=== PATIENT | female | born 1960 | race Caucasian/White ===

== ENCOUNTER 2017-03-03 17:58 | Observation (INO) ==
--- NOTE | 2017-03-03 18:02 | Emergency Department Note ---
Disposition Clinical Impression: Abdominal pain, Diarrhea, Acute electrocardiogram changes, Supratherapeutic INR Disposition: Admitted As Inpatient Condition: Good General Adult HPI - General Chief complaint: ED Nausea/Vomiting/Diarrhea Stated complaint: N/V/D Time Seen by Provider: 03/03/17 18:01 - Related Data Home Medications Medication Instructions Recorded Confirmed Atenolol [Tenormin] 50 mg PO DAILY 12/26/14 03/03/17 Atorvastatin Calcium [Lipitor] 20 mg PO HS 12/26/14 03/03/17 Famotidine [Pepcid] 40 mg PO BID 12/26/14 03/03/17 Lisinopril [Zestril] 10 mg PO DAILY 12/26/14 03/03/17 Melatonin 10 mg PO HS 12/26/14 03/03/17 diazePAM [Valium] 10 mg PO TID 10/15/15 03/03/17 Methocarbamol [Robaxin] 500 mg PO Q8HR 12/04/15 03/03/17 Albuterol Neb [Proventil Neb] 2.5 mg IH Q6H PRN 03/03/17 03/03/17 Albuterol Sulfate [Proair Hfa] 2 puff IH Q4H PRN 03/03/17 03/03/17 Diphenoxylate/Atropine [Lomotil 1 each PO BID PRN 03/03/17 03/03/17 2.5 mg/0.025 mg] Trazodone HCl 300 mg PO HS 03/03/17 03/03/17 Warfarin [Coumadin] 5 mg PO 1700 03/03/17 03/03/17 Allergies Allergy/AdvReac Type Severity Reaction Status Date / Time doxycycline Allergy Rash Verified 01/11/17 14:07 Erythromycin Base Allergy See Verified 01/11/17 14:07 Comments Iodinated Contrast- Oral and Allergy Unresponsiv Verified 01/11/17 14:07 IV Dye e [Iodinated Contrast Media - IV Dye] ketorolac [From Toradol] Allergy Rash Verified 01/11/17 14:07 NSAIDS (Non-Steroidal Allergy Gastrointestinal Verified 01/11/17 14:07 Anti-Inflamma Upset Sulfa (Sulfonamide Allergy Rash Verified 01/11/17 14:07 Antibiotics) tramadol Allergy Rash Verified 01/11/17 14:07 Past Medical History - Past Medical History Medical history: Reports: asthma, COPD, DVT, diabetes, fibromyalgia, GERD, hyperlipidemia, migraine, pulmonary embolus Surgical history: Reports: hysterectomy Psychiatric history: Reports: anxiety, depression BOILER HELPER history: Reports: no BOILER HELPER history - Social History Smoking Status: Current every day smoker Smokeless Tobacco Status: No Alcohol use: Reports: none Drug use: Reports: none Course Vital Signs Temperature 97.8 F 03/03/17 18:44 Pulse Rate 54 03/03/17 18:44 Respiratory Rate 16 03/03/17 18:44 Blood Pressure 172/85 03/03/17 18:44 O2 Sat by Pulse Oximetry 97 03/03/17 18:44 Temperature 97.7 F 03/04/17 07:48 Pulse Rate 53 03/04/17 07:48 Respiratory Rate 16 03/04/17 07:48 Blood Pressure 103/69 03/04/17 07:48 O2 Sat by Pulse Oximetry 95 03/04/17 07:48 Oxygen Delivery Oxygen Delivery Room Air Medical Decision Making - Lab Data Result diagrams: 03/04/17 01:00 03/04/17 01:00 Lab Results 03/03/17 03/03/17 03/03/17 Range/Units 18:56 18:56 18:56 WBC 11.9 H (4.3-11.1) K/mcL RBC 4.42 (3.82-4.97) M/mcL Hgb 14.3 (11.5-15.4) g/dL Hct 41.6 (35.3-44.9) % MCV 94.1 (83.0-100.0) fL MCH 32.4 (28.0-33.3) pg MCHC 34.4 (31.6-35.5) g/dL RDW 13.7 (11.5-14.5) % Plt Count 291 (140-400) K/mcL MPV 9.9 (9.4-12.4) fL Immature Gran % 0.3 (0-4) % Seg Neutrophils % 72.2 % Lymphocytes % 20.5 % Monocytes % 6.4 % Eosinophils % 0.1 % Basophils % 0.5 % Neutrophils # 8.6 (1.6-8.9) K/mcL Lymphocytes # 2.4 (0.6-4.6) K/mcL Monocytes # 0.8 (0.0-1.3) K/mcL Eosinophils # 0.0 (0.0-0.6) K/mcL Basophils # 0.1 (0.0-0.2) K/mcL PT 46.4 H* (9.4-12.1) Seconds INR 4.2 Sodium 140 (136-145) mEq/L Potassium 4.1 (3.5-4.5) mEq/L Chloride 103 (98-109) mEq/L Carbon Dioxide 26 (19-29) mEq/L BUN 6 L (7-20) mg/dL Creatinine 0.89 (0.57-1.11) mg/dL Est GFR ( Amer) > 60 (> 60) Est GFR (Non-Af Amer) > 60 (> 60) BUN/Creatinine Ratio 7 (6-26) Glucose 134 H (70-99) mg/dL Calculated Osmolality 290 (280-300) Lactic Acid (0.5-2.2) mmol/L Calcium 9.4 (8.6-10.8) mg/dL Total Bilirubin 0.6 (0.2-1.2) mg/dL AST 31 (5-34) Units/L ALT 20 (0-55) Units/L Alkaline Phosphatase 79 (38-126) Units/L Troponin I (0-0.03) ng/mL Serum Total Protein 6.4 (6.0-8.3) g/dL Albumin 3.5 (3.5-5.0) g/dL Globulin 2.9 (2.4-3.5) g/dL Albumin/Globulin Ratio 1.2 (1.1-2.2) Urine Color (Yellow) Urine Clarity (Clear) Urine pH (5.0-8.0) pH Units Ur Specific [place] (1.010-1.025) Urine Protein (Neg-Trace) mg/dL Urine Glucose (UA) (Normal) mg/dL Urine Ketones (Negative) mg/dL Urine Blood (Negative) Urine Nitrite (Negative) Urine Bilirubin (Negative) Urine Urobilinogen (Normal) mg/dL Ur Leukocyte Esterase (Negative) 03/03/17 03/03/17 03/03/17 Range/Units 18:56 18:56 20:07 WBC (4.3-11.1) K/mcL RBC (3.82-4.97) M/mcL Hgb (11.5-15.4) g/dL Hct (35.3-44.9) % MCV (83.0-100.0) fL MCH (28.0-33.3) pg MCHC (31.6-35.5) g/dL RDW (11.5-14.5) % Plt Count (140-400) K/mcL MPV (9.4-12.4) fL Immature Gran % (0-4) % Seg Neutrophils % % Lymphocytes % % Monocytes % % Eosinophils % % Basophils % % Neutrophils # (1.6-8.9) K/mcL Lymphocytes # (0.6-4.6) K/mcL Monocytes # (0.0-1.3) K/mcL Eosinophils # (0.0-0.6) K/mcL Basophils # (0.0-0.2) K/mcL PT (9.4-12.1) Seconds INR Sodium (136-145) mEq/L Potassium (3.5-4.5) mEq/L Chloride (98-109) mEq/L Carbon Dioxide (19-29) mEq/L BUN (7-20) mg/dL Creatinine (0.57-1.11) mg/dL Est GFR ( Amer) (> 60) Est GFR (Non-Af Amer) (> 60) BUN/Creatinine Ratio (6-26) Glucose (70-99) mg/dL Calculated Osmolality (280-300) Lactic Acid 1.3 (0.5-2.2) mmol/L Calcium (8.6-10.8) mg/dL Total Bilirubin (0.2-1.2) mg/dL AST (5-34) Units/L ALT (0-55) Units/L Alkaline Phosphatase (38-126) Units/L Troponin I 0.00 (0-0.03) ng/mL Serum Total Protein (6.0-8.3) g/dL Albumin (3.5-5.0) g/dL Globulin (2.4-3.5) g/dL Albumin/Globulin Ratio (1.1-2.2) Urine Color Yellow (Yellow) Urine Clarity Clear (Clear) Urine pH 7.0 (5.0-8.0) pH Units Ur Specific [place] 1.010 (1.010-1.025) Urine Protein Negative (Neg-Trace) mg/dL Urine Glucose (UA) Normal (Normal) mg/dL Urine Ketones Negative (Negative) mg/dL Urine Blood Negative (Negative) Urine Nitrite Negative (Negative) Urine Bilirubin Negative (Negative) Urine Urobilinogen Normal (Normal) mg/dL Ur Leukocyte Esterase Negative (Negative) Attestation Statement - Attestation Attestation: I examined this patient and my medical decision-making was reviewed with the Resident Physician. I agree with the documented findings, disposition and treatment plan as described except to the extent set forth below. [id number] time provided Patient arrives by EMS from home complaining of nausea, vomiting, diarrhea. " My bowels exploded." She complains of generalized pain. Appears mildly uncomfortable on exam 18:21: Care to be endorsed to the oncoming physician Dr. Wu at 7 PM pending labs, CT, and reevaluation
[2017-03-03] MEDS ORDERED: *HR* Morphine 2 MG/ML SYRINGE IVP ONE (18:27)
--- NOTE | 2017-03-03 18:32 | Emergency Department Note ---
Disposition Clinical Impression: Abdominal pain Qualifiers: Abdominal location: lower abdomen, unspecified Qualified Code(s): R10.30 - Lower abdominal pain, unspecified Diarrhea Qualifiers: Diarrhea type: unspecified type Qualified Code(s): R19.7 - Diarrhea, unspecified Disposition: Still a Patient Condition: Good Referrals: Hunter Tapia PAC [Primary Care Provider] - Forms: ED Satisfaction Letter Time of Disposition: 19:00 Nausea/Vomiting/Diarrhea HPI - General Chief complaint: ED Nausea/Vomiting/Diarrhea Stated complaint: N/V/D Time Seen by Provider: 03/03/17 18:01 Source: patient Mode of arrival: ambulatory Limitations: no limitations Nursing Notes Reviewed: Yes Vital Signs Reviewed: Yes - History of Present Illness HPI Narrative: Patient is a 56-year-old female with past medical history of COPD, diabetes, DVTs, currently on Coumadin. She presents today due to abdominal pain, diarrhea. Patient said that she had a large bowel movement and describes as "excessive diarrhea "on Wednesday. Denies any bloody or dark stools. Since then, she has not had a bowel movement. She does have a history of bowel obstructions in the past. She said that she has also had decreased appetite. She also notes a fall about a week ago. She said that she was walking up the stairs and lost balance, fell onto wooden steps and either hit her abdomen on her arm or the stairs. She has also had abdominal discomfort since then as well. She says that she called her primary care physician and "was told to come to the ER for further evaluation due to concern for a possible bowel perforation." She says that she did not take her Coumadin tonight due to concern for possible bowel perforation. - Related Data Home Medications Medication Instructions Recorded Confirmed Atenolol [Tenormin] 50 mg PO DAILY 12/26/14 01/11/17 Atorvastatin Calcium [Lipitor] 20 mg PO DAILY 12/26/14 01/11/17 Famotidine [Pepcid] 40 mg PO BID 12/26/14 01/11/17 Lisinopril [Zestril] 10 mg PO DAILY 12/26/14 01/11/17 Melatonin 5 mg PO DAILY 12/26/14 01/11/17 Trazodone HCl [TraZODone] 300 mg PO DAILY 12/26/14 01/11/17 Warfarin [Coumadin] 4 mg PO PER PKG DI 02/15/15 01/11/17 diazePAM [Valium] 10 mg PO TID 10/15/15 01/11/17 Methocarbamol [Robaxin] 500 mg PO Q8HR 12/04/15 01/11/17 Warfarin [Coumadin] 3 mg PO PER PKG DI 12/04/15 01/11/17 Phenazopyridine [Pyridium] 100 mg PO BID 01/11/17 01/11/17 Previous Rx's Medication Instructions Recorded Acetaminophen w/Cod 300-30 mg 1 each PO Q6HR #8 tablet 01/11/17 [Tylenol w/Codeine #3] cephALEXin [Keflex] 500 mg PO QID #40 capsule 01/11/17 Allergies Allergy/AdvReac Type Severity Reaction Status Date / Time doxycycline Allergy Rash Verified 01/11/17 14:07 Erythromycin Base Allergy See Verified 01/11/17 14:07 Comments Iodinated Contrast- Oral and Allergy Unresponsiv Verified 01/11/17 14:07 IV Dye e [Iodinated Contrast Media - IV Dye] ketorolac [From Toradol] Allergy Rash Verified 01/11/17 14:07 NSAIDS (Non-Steroidal Allergy Gastrointestinal Verified 01/11/17 14:07 Anti-Inflamma Upset Sulfa (Sulfonamide Allergy Rash Verified 01/11/17 14:07 Antibiotics) tramadol Allergy Rash Verified 01/11/17 14:07 All systems ED: reviewed and negative except as stated. Constitutional: Denies: fever Cardiovascular: Denies: chest pain Respiratory: Denies: dyspnea Gastrointestinal: Reports: abdominal pain, diarrhea. Denies: nausea, vomiting, constipation Musculoskeletal: Denies: back pain Neurological: Denies: headache, weakness, numbness, paresthesias Past Medical History - Past Medical History Attestation: Yes The following information was validated with the patient. Source: patient Medical history: Reports: asthma, COPD, DVT, diabetes, fibromyalgia, GERD, hyperlipidemia, migraine, pulmonary embolus Surgical history: Reports: hysterectomy Psychiatric history: Reports: anxiety, depression CUT OUT MARKER history: Reports: no CUT OUT MARKER history - Social History Smoking Status: Current every day smoker Smokeless Tobacco Status: No Alcohol use: Reports: none Drug use: Reports: none Physical Exam - General Limitations: no limitations General appearance: alert, in no apparent distress - Head Head exam: atraumatic, normocephalic, normal inspection - Eye Eye exam: Present: normal appearance, PERRL, EOMI - ENT ENT exam: normal exam, normal oropharynx, mucous membranes moist - Neck Neck exam: Present: normal inspection, full ROM, trachea midline - Chest Chest inspection: Present: normal inspection, symmetric chest wall rise - Respiratory Respiratory exam: Present: normal lung sounds bilaterally - Cardiovascular Cardiovascular exam: Present: regular rate, normal rhythm, normal heart sounds - Abdominal Exam Abdominal exam: Present: soft, tenderness (suprapubic region and lower abdomen, moderate). Absent: distention, guarding, rebound - Extremities Exam Extremities exam: Present: normal inspection, full ROM. Absent: tenderness, pedal edema - Neurological Exam Neurological exam: Present: alert, oriented X3 - Psychiatric Psychiatric exam: Present: normal affect, normal mood, anxious - Skin Skin exam: Present: warm, dry, intact, normal color Course Course Narrative: Physical exam shows moderate lower and suprapubic abdominal pain on exam. We will obtain basic blood work, CBC, BMP, lipase. EKG was obtained and shows sinus bradycardia with elevated T waves. We will also obtain troponin level. No current chest pain or shortness of breath. Patient is on Coumadin but did not take her evening dose. We will also obtain CT of the abdomen and pelvis for further assessment of abdominal pain. Patient has a contrast allergy, therefore, I cannot do the scan with contrast. Will sign out the patient to Dr. Corcoran and Dr.Wilcox Hoffman for further care. Nausea/Vomiting/Diarrhea - [facility] Narrative Medical decision making narrative: Physical exam shows moderate lower and suprapubic abdominal pain on exam. We will obtain basic blood work, CBC, BMP, lipase. EKG was obtained and shows sinus bradycardia with elevated T waves. We will also obtain troponin level. No current chest pain or shortness of breath. Patient is on Coumadin but did not take her evening dose. We will also obtain CT of the abdomen and pelvis for further assessment of abdominal pain. Patient has a contrast allergy, therefore, I cannot do the scan with contrast. Will sign out the patient to Dr. Corcoran and Dr.Wilcox Hoffman for further care. - Medical Records Medical records reviewed: Yes I reviewed the patient's medical records. - EKG Data EKG attestation: Yes I reviewed and interpreted this EKG. EKG results narrative: 03/03/2017 at 18:29. Sinus bradycardia. Rate 55. AL 121. QRS 90. QTc 441. T-wave inversion in lead V2 through V6 that are new for the patient compared to previous EKG on 04/02/2010. No acute ST elevation. Some peaked T waves in lead 1 and aVL S.B.A.R. - S.B.A.R. Situation: Demographics, MOA Background: Presenting Complaint, Relevant PMH, Meds, & Allergies Assessment: Vital Signs, Course and respsone to treatment, Exam Concerns, Patient/Family Expectation, Pertinant Lab Results, Outstanding Labs Recommendation: Barrier(s) to disposition, Recommendation based on pending studies, treatments, or consults S.B.A.R. Report Given to: Dr. Corcoran and Dr. Torrie Hoffman S.B.A.ROscar Repor Time: 19:00
[2017-03-03 19:03] LABS: Basophils # 0.1 K/mcL (0.0-0.2); Basophils % 0.5 %; Eosinophils % 0.1 %; Hematocrit 41.6 % (35.3-44.9); Hemoglobin 14.3 g/dL (11.5-15.4); Immature Granulocytes % 0.3 % (0-4); Lymphocytes # 2.4 K/mcL (0.6-4.6); Lymphocytes % 20.5 %; Mean Corpuscular HGB Conc 34.4 g/dL (31.6-35.5); Mean Corpuscular Hemoglobin 32.4 pg (28.0-33.3); Mean Corpuscular Volume 94.1 fL (83.0-100.0); Mean Platelet Volume 9.9 fL (9.4-12.4); Monocytes # 0.8 K/mcL (0.0-1.3); Monocytes % 6.4 %; Neutrophils # 8.6 K/mcL (1.6-8.9); Platelet Count 291 K/mcL (140-400); Red Blood Count 4.42 M/mcL (3.82-4.97); Red Cell Distribution Width 13.7 % (11.5-14.5); Segmented Neutrophils % 72.2 %
[2017-03-03 19:15] LABS: INR 4.2
[2017-03-03 19:17] LABS: Alanine Aminotransferase 20 Units/L (0-55); Albumin 3.5 g/dL (3.5-5.0); Albumin/Globulin Ratio 1.2 (1.1-2.2); Alkaline Phosphatase 79 Units/L (38-126); Aspartate Amino Transferase 31 Units/L (5-34); BUN/Creatinine Ratio 7 (6-26); Bilirubin,Total 0.6 mg/dL (0.2-1.2); Blood Urea Nitrogen 6 mg/dL (7-20); Calcium 9.4 mg/dL (8.6-10.8); Carbon Dioxide 26 mEq/L (19-29); Chloride 103 mEq/L (98-109); Globulin 2.9 g/dL (2.4-3.5); Glucose 134 mg/dL (70-99); Osmolality,Calculated 290 (280-300); Potassium 4.1 mEq/L (3.5-4.5); Sodium 140 mEq/L (136-145); Total Protein 6.4 g/dL (6.0-8.3); eGFR For African Americans > 60 (> 60); eGFR For Non-African Americans > 60 (> 60)
[2017-03-03 19:21] LABS: Prothrombin Time 46.4 Seconds (9.4-12.1)
[2017-03-03] MEDS ORDERED: Aspirin 81 MG TAB.CHEW PO ONE (19:32)
[2017-03-03 20:16] LABS: Bilirubin,Urine Negative (Negative); Blood,Urine Negative (Negative); Clarity,Urine Clear (Clear); Color,Urine Yellow (Yellow); Glucose,Urine (UA) Normal (Normal); Ketones,Urine Negative (Negative); Leukocyte Esterase,Urine Negative (Negative); Nitrite,Urine Negative (Negative); Protein,Urine Negative (Neg-Trace); Urobilinogen,Urine Normal (Normal)
--- NOTE | 2017-03-03 20:56 | Emergency Department Note ---
Disposition Clinical Impression: Acute electrocardiogram changes, Supratherapeutic INR Abdominal pain Qualifiers: Abdominal location: lower abdomen, unspecified Qualified Code(s): R10.30 - Lower abdominal pain, unspecified Diarrhea Qualifiers: Diarrhea type: unspecified type Qualified Code(s): R19.7 - Diarrhea, unspecified Disposition: Admitted As Inpatient Condition: Good Referrals: Hunter Tapia, PAC [Primary Care Provider] - Forms: ED Satisfaction Letter Time of Disposition: 21:13 Abdominal Pain HPI - General Chief Complaint: ED Abdominal Pain Stated Complaint: N/V/D Time Seen by Provider: 03/03/17 18:01 Source: patient Mode of arrival: ambulatory Limitations: no limitations Nursing Notes Reviewed: Yes Vital Signs Reviewed: Yes - History of Present Illness Pain Scale: 10 - Related Data Home Medications Medication Instructions Recorded Confirmed Atenolol [Tenormin] 50 mg PO DAILY 12/26/14 03/03/17 Atorvastatin Calcium [Lipitor] 20 mg PO HS 12/26/14 03/03/17 Famotidine [Pepcid] 40 mg PO BID 12/26/14 03/03/17 Lisinopril [Zestril] 10 mg PO DAILY 12/26/14 03/03/17 Melatonin 10 mg PO HS 12/26/14 03/03/17 diazePAM [Valium] 10 mg PO TID 10/15/15 03/03/17 Methocarbamol [Robaxin] 500 mg PO Q8HR 12/04/15 03/03/17 Albuterol Neb [Proventil Neb] 2.5 mg IH Q6H PRN 03/03/17 03/03/17 Albuterol Sulfate [Proair Hfa] 2 puff IH Q4H PRN 03/03/17 03/03/17 Diphenoxylate/Atropine [Lomotil 1 each PO BID PRN 03/03/17 03/03/17 2.5 mg/0.025 mg] Trazodone HCl 300 mg PO HS 03/03/17 03/03/17 Warfarin [Coumadin] 5 mg PO 1700 03/03/17 03/03/17 Allergies Allergy/AdvReac Type Severity Reaction Status Date / Time doxycycline Allergy Rash Verified 01/11/17 14:07 Erythromycin Base Allergy See Verified 01/11/17 14:07 Comments Iodinated Contrast- Oral and Allergy Unresponsiv Verified 01/11/17 14:07 IV Dye e [Iodinated Contrast Media - IV Dye] ketorolac [From Toradol] Allergy Rash Verified 01/11/17 14:07 NSAIDS (Non-Steroidal Allergy Gastrointestinal Verified 01/11/17 14:07 Anti-Inflamma Upset Sulfa (Sulfonamide Allergy Rash Verified 01/11/17 14:07 Antibiotics) tramadol Allergy Rash Verified 01/11/17 14:07 Constitutional: Denies: fever Cardiovascular: Denies: chest pain Respiratory: Denies: dyspnea Gastrointestinal: Reports: abdominal pain, diarrhea. Denies: nausea, vomiting, constipation Musculoskeletal: Denies: back pain Neurological: Denies: headache, weakness, numbness, paresthesias Abdominal Pain PMH - Past Medical History Medical history: Reports: asthma, COPD, DVT, diabetes, fibromyalgia, GERD, hyperlipidemia, migraine, pulmonary embolus Female Surgical History: Reports: hysterectomy LINOLEUM TILE FLOOR LAYER history: Reports: no LINOLEUM TILE FLOOR LAYER history Psychiatric history: Reports: anxiety, depression - Social History Smoking status: Current every day smoker Alcohol use: Reports: none Drug use: Reports: none Physical Exam - General Limitations: no limitations General appearance: alert, in no apparent distress Course - Reevaluation(s) Reevaluation #1: Signout from the daytime team. 56-year-old female presenting with nausea, vomiting, diarrhea. Troponin is normal. However, she does have a new T-wave inversions on her EKG. Could be an anginal equivalent and will admit to the hospitalist service for further cardiac workup. Time: 20:54 Vital Signs Temperature 97.8 F 03/03/17 18:44 Pulse Rate 54 03/03/17 18:44 Respiratory Rate 16 03/03/17 18:44 Blood Pressure 172/85 03/03/17 18:44 O2 Sat by Pulse Oximetry 97 03/03/17 18:44 Temperature 97.8 F 03/03/17 18:44 Pulse Rate 61 03/03/17 19:59 Respiratory Rate 18 03/03/17 19:59 Blood Pressure 189/101 03/03/17 19:59 O2 Sat by Pulse Oximetry 97 03/03/17 19:59 Oxygen Delivery Oxygen Delivery Room Air Abdominal Pain - Medical Records Medical records reviewed: Yes I reviewed the patient's medical records. - Lab Data Lab results reviewed: Yes I reviewed the patient's lab results. Result diagrams: 03/03/17 18:56 03/03/17 18:56 Lab Results 03/03/17 03/03/17 03/03/17 Range/Units 18:56 18:56 18:56 WBC 11.9 H (4.3-11.1) K/mcL RBC 4.42 (3.82-4.97) M/mcL Hgb 14.3 (11.5-15.4) g/dL Hct 41.6 (35.3-44.9) % MCV 94.1 (83.0-100.0) fL MCH 32.4 (28.0-33.3) pg MCHC 34.4 (31.6-35.5) g/dL RDW 13.7 (11.5-14.5) % Plt Count 291 (140-400) K/mcL MPV 9.9 (9.4-12.4) fL Immature Gran % 0.3 (0-4) % Seg Neutrophils % 72.2 % Lymphocytes % 20.5 % Monocytes % 6.4 % Eosinophils % 0.1 % Basophils % 0.5 % Neutrophils # 8.6 (1.6-8.9) K/mcL Lymphocytes # 2.4 (0.6-4.6) K/mcL Monocytes # 0.8 (0.0-1.3) K/mcL Eosinophils # 0.0 (0.0-0.6) K/mcL Basophils # 0.1 (0.0-0.2) K/mcL PT 46.4 H* (9.4-12.1) Seconds INR 4.2 Sodium 140 (136-145) mEq/L Potassium 4.1 (3.5-4.5) mEq/L Chloride 103 (98-109) mEq/L Carbon Dioxide 26 (19-29) mEq/L BUN 6 L (7-20) mg/dL Creatinine 0.89 (0.57-1.11) mg/dL Est GFR ( Amer) > 60 (> 60) Est GFR (Non-Af Amer) > 60 (> 60) BUN/Creatinine Ratio 7 (6-26) Glucose 134 H (70-99) mg/dL Calculated Osmolality 290 (280-300) Lactic Acid (0.5-2.2) mmol/L Calcium 9.4 (8.6-10.8) mg/dL Total Bilirubin 0.6 (0.2-1.2) mg/dL AST 31 (5-34) Units/L ALT 20 (0-55) Units/L Alkaline Phosphatase 79 (38-126) Units/L Troponin I (0-0.03) ng/mL Serum Total Protein 6.4 (6.0-8.3) g/dL Albumin 3.5 (3.5-5.0) g/dL Globulin 2.9 (2.4-3.5) g/dL Albumin/Globulin Ratio 1.2 (1.1-2.2) Urine Color (Yellow) Urine Clarity (Clear) Urine pH (5.0-8.0) pH Units Ur Specific [place] (1.010-1.025) Urine Protein (Neg-Trace) mg/dL Urine Glucose (UA) (Normal) mg/dL Urine Ketones (Negative) mg/dL Urine Blood (Negative) Urine Nitrite (Negative) Urine Bilirubin (Negative) Urine Urobilinogen (Normal) mg/dL Ur Leukocyte Esterase (Negative) 03/03/17 03/03/17 03/03/17 Range/Units 18:56 18:56 20:07 WBC (4.3-11.1) K/mcL RBC (3.82-4.97) M/mcL Hgb (11.5-15.4) g/dL Hct (35.3-44.9) % MCV (83.0-100.0) fL MCH (28.0-33.3) pg MCHC (31.6-35.5) g/dL RDW (11.5-14.5) % Plt Count (140-400) K/mcL MPV (9.4-12.4) fL Immature Gran % (0-4) % Seg Neutrophils % % Lymphocytes % % Monocytes % % Eosinophils % % Basophils % % Neutrophils # (1.6-8.9) K/mcL Lymphocytes # (0.6-4.6) K/mcL Monocytes # (0.0-1.3) K/mcL Eosinophils # (0.0-0.6) K/mcL Basophils # (0.0-0.2) K/mcL PT (9.4-12.1) Seconds INR Sodium (136-145) mEq/L Potassium (3.5-4.5) mEq/L Chloride (98-109) mEq/L Carbon Dioxide (19-29) mEq/L BUN (7-20) mg/dL Creatinine (0.57-1.11) mg/dL Est GFR ( Amer) (> 60) Est GFR (Non-Af Amer) (> 60) BUN/Creatinine Ratio (6-26) Glucose (70-99) mg/dL Calculated Osmolality (280-300) Lactic Acid 1.3 (0.5-2.2) mmol/L Calcium (8.6-10.8) mg/dL Total Bilirubin (0.2-1.2) mg/dL AST (5-34) Units/L ALT (0-55) Units/L Alkaline Phosphatase (38-126) Units/L Troponin I 0.00 (0-0.03) ng/mL Serum Total Protein (6.0-8.3) g/dL Albumin (3.5-5.0) g/dL Globulin (2.4-3.5) g/dL Albumin/Globulin Ratio (1.1-2.2) Urine Color Yellow (Yellow) Urine Clarity Clear (Clear) Urine pH 7.0 (5.0-8.0) pH Units Ur Specific [place] 1.010 (1.010-1.025) Urine Protein Negative (Neg-Trace) mg/dL Urine Glucose (UA) Normal (Normal) mg/dL Urine Ketones Negative (Negative) mg/dL Urine Blood Negative (Negative) Urine Nitrite Negative (Negative) Urine Bilirubin Negative (Negative) Urine Urobilinogen Normal (Normal) mg/dL Ur Leukocyte Esterase Negative (Negative) - Radiology Data Radiology results reviewed: Yes I reviewed the patient's radiology results. Abdomen/Pelvis CT 03/03/17 18:26 IMPRESSION: 1. Limited study due to lack of IV contrast. 2. Otherwise no acute findings within the abdomen or pelvis. 3. The appendix is not visualized. However there are no significant inflammatory changes of the right lower quadrant to suggest acute appendicitis. 4. No evidence of small bowel obstruction. D/ / 03/03/2017 20:02:03 Galileo Muñoz MD / [email or web address] Interpreting Provider: Galileo Muñoz MD Chest X-Ray 03/03/17 19:33 IMPRESSION: No acute cardiopulmonary findings. D/ / 03/03/2017 20:09:40 Galileo Muñoz MD / karthik Interpreting Provider: Galileo Muñoz MD - EKG Data EKG attestation: Yes I reviewed and interpreted this EKG. EKG results narrative: Sinus bradycardia, rate 55, NV interval 121, QRS 90, QTC 441, indeterminate axis , inverted T waves in V1, V2 and V3 that are changed from previous. Also has T- wave inversions in V4 and V5 that are new. S.B.AStanislav - Peace.[place] Situation: Demographics, MOA Background: Presenting Complaint, Relevant PMH, Meds, & Allergies Assessment: Vital Signs, Course and respsone to treatment, Exam Concerns, Patient/Family Expectation, Pertinant Lab Results, Outstanding Labs Recommendation: Barrier(s) to disposition, Recommendation based on pending studies, treatments, or consults S.BBill Report Given to: Dr. Onofre Pittman Repor Time: 21:13 Attestation Statement - Attestation Attestation: I examined this patient and my medical decision-making was reviewed with the Resident Physician, Dr. Corcoran. I agree with the documented findings, disposition and treatment plan as described except to the extent set forth below. Patient is 48-year-old white female who presented initially to the emergency Department during the day shift and was initially evaluated by Dr. Powell for reported generalized abdominal pain nausea vomiting and diarrhea. Patient had labs ordered, EKG and cardiac workup ordered and CT pending at the time of sign out. Patient is remained hemodynamically stable and resting comfortably throughout her ED course. I agree with patient's physical exam findings as documented. Patient's lab evaluation is unremarkable overall and her CT abdomen and pelvis was negative for any abnormalities. Patient's troponin was negative but she does have new T-wave inversions across the anterolateral leads in comparison to prior EKG. Concerned with patient who is a diabetic having nausea and abdominal symptoms with new EKG changes and feel she warrants further cardiac evaluation. Case was discussed with the hospitalist who accepted patient for admission.
--- NOTE | 2017-03-03 22:46 | Internal Med History&Physical ---
<RjNéstor - Last Filed: 03/03/17 23:17> Date of Encounter: 03/03/17 Time of Encounter: 22:43 Assessment and Plan (1) Abdominal pain Current visit: Yes Status: Acute Unclear etiology, cannot rule out viral gastroenteritis as she only had one episode of diarrhea and has been constipated since then CT of the abdomen and pelvis did not reveal any acute abnormalities and lab work is negative We will provide her with stool softeners as needed and support with analgesics and anti-emetics Given that this could be an anginal equivalent in setting of new T-wave inversion seen on EKG, we will rule out cardiac etiology with trop and echo Qualifiers: Abdominal location: lower abdomen, unspecified Qualified Code(s): R10.30 - Lower abdominal pain, unspecified (2) Syncope Current visit: Yes Status: Acute Although this is not why she presented today, she does have T-wave inversions on EKG and describes syncopal episodes associated with falls I will obtain an echocardiogram and bilateral carotid duplex in the a.m. She is already on statin, beta nohemi which we will continue; obtain lipid panel to see if she needs increased dose of statin Qualifiers: Qualified Code(s): R55 - Syncope and collapse (3) Supratherapeutic INR Current visit: Yes Status: Acute Patient's INR is 4.2 today We will hold her Coumadin and reassess her INR in the morning prior to restarting (4) Anxiety Current visit: Yes Status: Chronic We will continue her home Valium as she is quite anxious upon presentation (5) HTN (hypertension) Current visit: No Status: Chronic Her blood pressures were moderately elevated upon admission We will resume her home atenolol and lisinopril and offer hydralazine IV as needed Qualifiers: Qualified Code(s): I10 - Essential (primary) hypertension (6) COPD (chronic obstructive pulmonary disease) Current visit: No Status: Chronic Not currently in exacerbation We will restart her on her home breathing treatments as needed She is saturating in the mid to upper 90s on room air currently Qualifiers: COPD type: unspecified COPD Qualified Code(s): J44.9 - Chronic obstructive pulmonary disease, unspecified (7) DM (diabetes mellitus), type 2 Current visit: No Status: Chronic Unclear if she actually has diabetes, but states that it has affected her vision in the past Her last A1c was obtained over a year ago and was 5.6, we will recheck We will start her on low-dose sliding scale insulin ACHS accuchecks Qualifiers: Diabetes mellitus complication status: with skin complications Diabetes mellitus complication detail: with other skin complication Diabetes mellitus intermediate project manager insulin use: without halfway use Qualified Code(s): E11.628 - Type 2 diabetes mellitus with other skin complications (8) History of DVT (deep vein thrombosis) Current visit: No Status: Chronic Currently on Coumadin which is supratherapeutic (9) DVT prophylaxis Current visit: No Status: Acute She is supratherapeutic on INR, we will hold Coumadin as above Internal Medicine - H&P: HPI Chief complaint: abdominal pain Admitted From: Home Plans for Post Hospital Care: Home History of present illness: Ms. Lloyd is a 56 year old female who presents to the ED with abdominal pain. She states the pain started when she had an episode of "explosive diarrhea" on Wednesday. Patient stated that she had suprapubic pain and will try to bathroom but cannot hold it in, and had watery diarrhea that went up her shirt and on to her hair and stained the dubose as well. She described it as birdie colored and nonbloody, and this has never happened in the past. She has not had a bowel movement since Wednesday has also had decreased oral intake since then due to nausea. Patient also reports chest pain but has also been belching and has a history of GERD. She is currently on lifelong Coumadin due to history of DVT and PE and states that she did not take today's dose due to fear of bowel perforation. In addition, patient reports having syncope and frequent falls at home and does not know why. She denies any dizziness, lightheadedness, fevers, chills, shortness of breath, urinary problems. Patient claims she cannot get a colonoscopy because she cannot be off Coumadin for more than 2 days at a time as her blood "thickens quickly". Past Med Surg Social Fam HX - Past Medical History Medical history: asthma, COPD, DVT, diabetes, fibromyalgia, GERD, hyperlipidemia , migraine, pulmonary embolus Psychiatric history: anxiety, depression - Past Surgical History Surgical History: hysterectomy - Social History Smoking Status: Current every day smoker Smokeless Tobacco Status: No Alcohol use: none Drug use: none - Family History Mother Hx Family Cancer: Yes (LUNG WITH METS) Internal Medicine - H&P: Meds Atenolol [Tenormin] 50 mg PO DAILY 12/26/14 [History] Atorvastatin Calcium [Lipitor] 20 mg PO HS 12/26/14 [History] Famotidine [Pepcid] 40 mg PO BID 12/26/14 [History] Lisinopril [Zestril] 10 mg PO DAILY 12/26/14 [History] Melatonin 10 mg PO HS 12/26/14 [History] diazePAM [Valium] 10 mg PO TID 10/15/15 [History] Methocarbamol [Robaxin] 500 mg PO Q8HR 12/04/15 [History] Albuterol Neb [Proventil Neb] 2.5 mg IH Q6H PRN 03/03/17 [History] Albuterol Sulfate [Proair Hfa] 2 puff IH Q4H PRN 03/03/17 [History] Diphenoxylate/Atropine [Lomotil 2.5 mg/0.025 mg] 1 each PO BID PRN 03/03/17 [ History] Trazodone HCl 300 mg PO HS 03/03/17 [History] Warfarin [Coumadin] 5 mg PO 1700 03/03/17 [History] 3 Allergy/AdvReac Type Severity Reaction Status Date / Time doxycycline Allergy Rash Verified 01/11/17 14:07 Erythromycin Base Allergy See Verified 01/11/17 14:07 Comments Iodinated Contrast- Oral and Allergy Unresponsiv Verified 01/11/17 14:07 IV Dye e [Iodinated Contrast Media - IV Dye] ketorolac [From Toradol] Allergy Rash Verified 01/11/17 14:07 NSAIDS (Non-Steroidal Allergy Gastrointestinal Verified 01/11/17 14:07 Anti-Inflamma Upset Sulfa (Sulfonamide Allergy Rash Verified 01/11/17 14:07 Antibiotics) tramadol Allergy Rash Verified 01/11/17 14:07 All Systems PM: A 10-system review of systems was performed and is negative for pertinent findings except as documented above in the HPI. - Constitutional Constitutional: falls, no chills, no fever(s), no night sweats - EENT Eyes: blurry vision, no change in vision, no discharge, no pain, no photophobia Ears: no ear discharge, no ear pain, no tinnitus Nose, mouth and throat: neck pain, no dysphagia, no nasal discharge, no sore throat - Cardiovascular Cardiovascular ROS IM: chest pain, irregular heart rhythm, syncope, no diaphoresis, no dyspnea, no lightheadedness, no palpitations - Respiratory Respiratory: no cough, no dyspnea, no wheezing, no excessive phlegm production - Gastrointestinal Gastrointestinal: abdominal pain, diarrhea, no hematemesis, no hematochezia, no melena, no nausea, no vomiting - Genitourinary Genitourinary: no change in urinary stream, no dysuria, no flank pain, no hematuria - Musculoskeletal Musculoskeletal ROS IM: no numbness, no tingling - Integumentary Integumentary IM: no rash, no unusual bruising - Neurological Neurological ROS: no confusion, no convulsions, no focal weakness, no numbness, no tingling, no tremor(s) - Hematologic/Lymphatic Hematologic/Lymphatic: no easy bruising - Constitutional Vitals: Temp Pulse Resp BP Pulse Ox 97.8 F 61 16 187/94 97 03/03/17 18:44 03/03/17 19:59 03/03/17 21:54 03/03/17 21:54 03/03/17 19:59 General appearance: Present: cooperative, pleasant, no acute distress, obese, answers questions appropriately - Head Head exam: Present: atraumatic, normocephalic - Eye Eye exam: Present: PERRL, conjuntiva pink, sclera anicteric - Neck Neck exam general surgery: Present: supple, trachea midline. Absent: lymphadenopathy - Respiratory Respiratory exam: Present: CTAB. Absent: accessory muscle use, rales, rhonchi, wheezes - Cardiovascular Cardiovascular exam: Present: RRR, +S1, +S2. Absent: diastolic murmur, gallop, rubs, systolic murmur - GI/Abdominal GI/Abdominal exam: Present: normal bowel sounds, soft, no peritoneal signs. Absent: distended, tenderness - Extremities Exam Extremities exam: Present: warm, radial pulses palpable and symmetrical. Absent : calf tenderness, cyanotic, pedal edema - Neurological Exam Neurological exam: Present: alert, oriented X3, no focal deficits. Absent: facial droop, speech deficit - Skin Skin exam: Present: dry, intact Internal Med - H&P Results - Labs CBC & Chem 7: 03/03/17 18:56 03/03/17 18:56 <RjJj - Last Filed: 03/04/17 04:09> Date of Encounter: 03/04/17 Internal Medicine - H&P: HPI History of present illness: Ms. Lloyd is a 56 year old female All Systems PM: A 10-system review of systems was performed and is negative for pertinent findings except as documented above in the HPI. - Constitutional Vitals: Temp Pulse Resp BP Pulse Ox 97.5 F L 50 18 135/84 96 03/04/17 03:08 03/04/17 03:08 03/04/17 03:08 03/04/17 03:08 03/04/17 03:08 Internal Med - H&P Results - Labs CBC & Chem 7: 03/04/17 01:00 03/04/17 01:00 Labs: Short CBC 03/04/17 Range/Units 01:00 WBC 9.7 (4.3-11.1) K/mcL Hgb 13.9 (11.5-15.4) g/dL Hct 40.2 (35.3-44.9) % Plt Count 295 (140-400) K/mcL Neutrophils # 5.3 (1.6-8.9) K/mcL BMP 03/04/17 01:00 Sodium 139 Potassium 3.3 L Chloride 101 Carbon Dioxide 28 BUN 6 L Creatinine 0.86 Glucose 137 H Calcium 8.8 Cardiac Enzymes 03/04/17 Range/Units 01:00 Troponin I 0.00 (0-0.03) ng/mL - Attending Attestation I have seen and examined the patient independently. I have discussed with resident Dr De La Rosa regarding the management plan. Agree with the documentation. Patient has a multiple complaints. Intermittent chest pain with T-wave change on EKG. Syncope with frequent fall. Abdominal pain, nausea, vomiting, and diarrhea. First of all, need to rule out ACS. We will place patient on continuous cardiac monitoring, 3 sets of troponin, repeat EKG in a.m., echocardiogram. We will also order duplex carotid to rule out. Will place patient on clear liquid diet and symptomatic treatment for nausea and vomiting.
[2017-03-03] MEDS ORDERED: Naloxone 0.4 MG/ML INJ IVP PRN (22:50)
[2017-03-03] MEDS ORDERED: Acetaminophen 325 MG TABLET PO PRN (22:50)
[2017-03-03] MEDS ORDERED: D5% in Water 1,000 ML IVC PRN (22:50)
[2017-03-03] MEDS ORDERED: *HR* Dextrose 50 % in Water (Syg) 50 ML SYRINGE IVP PRN (22:50)
[2017-03-03] MEDS ORDERED: Dextrose Gel 15 GM PO PRN ×2 (22:50)
[2017-03-03] MEDS ORDERED: Albuterol 2.5 MG/3 ML NEBULIZER IH PRN (22:56)
[2017-03-03] MEDS ORDERED: Melatonin 3 MG TABLET PO PRN (22:56)
[2017-03-04] MEDS: traZODone 50 MG TABLET PO SCH ×2 (00:30→21:23)
[2017-03-04] MEDS: diazePAM 10 MG TABLET PO PRN ×2 (00:31→11:13)
[2017-03-04] MEDS: Ondansetron 4 MG/2 ML VIAL IVP PRN ×2 (00:31→17:56)
[2017-03-04 01:13] LABS: Basophils % 0.4 %; Eosinophils # 0.1 K/mcL (0.0-0.6); Eosinophils % 0.6 %; Hematocrit 40.2 % (35.3-44.9); Hemoglobin 13.9 g/dL (11.5-15.4); Immature Granulocytes % 0.2 % (0-4); Lymphocytes # 3.4 K/mcL (0.6-4.6); Lymphocytes % 34.9 %; Mean Corpuscular HGB Conc 34.6 g/dL (31.6-35.5); Mean Corpuscular Hemoglobin 32.7 pg (28.0-33.3); Mean Corpuscular Volume 94.6 fL (83.0-100.0); Mean Platelet Volume 10.1 fL (9.4-12.4); Monocytes # 0.9 K/mcL (0.0-1.3); Monocytes % 8.9 %; Neutrophils # 5.3 K/mcL (1.6-8.9); Platelet Count 295 K/mcL (140-400); Red Blood Count 4.25 M/mcL (3.82-4.97); Red Cell Distribution Width 13.9 % (11.5-14.5)
[2017-03-04 01:18] LABS: INR 3.9
[2017-03-04 01:28] LABS: BUN/Creatinine Ratio 7 (6-26); Blood Urea Nitrogen 6 mg/dL (7-20); Calcium 8.8 mg/dL (8.6-10.8); Carbon Dioxide 28 mEq/L (19-29); Chloride 101 mEq/L (98-109); Glucose 137 mg/dL (70-99); Osmolality,Calculated 288 (280-300); Potassium 3.3 mEq/L (3.5-4.5); Sodium 139 mEq/L (136-145); eGFR For African Americans > 60 (> 60); eGFR For Non-African Americans > 60 (> 60)
[2017-03-04 01:29] LABS: Hemoglobin A1C 5.9 %
[2017-03-04 01:30] LABS: Chol/HDL Ratio 4.5 (0-4.9)
[2017-03-04 01:40] LABS: Prothrombin Time 43.8 Seconds (9.4-12.1)
[2017-03-04] MEDS: *HR* Morphine 2 MG/ML SYRINGE IVP PRN ×3 (02:33→21:23)
[2017-03-04] MEDS: *HR* Heparin 5,000 UNIT/ML VIAL SQ SCH ×2 (05:29→17:56)
[2017-03-04] MEDS: Pantoprazole 40 MG VIAL IVP SCH (05:29)
[2017-03-04] MEDS: Insulin LISPRO 300 UNITS/3 ML VIAL SQ SCH ×3 (10:59→17:39)
--- NOTE | 2017-03-04 15:35 | Electrocardiograph Report ---
[address] [address] Test Date: 2017-03-03 Pat Name: Leigh Lloyd Department: 103 Room: 3B Gender: F Chemist Internship: EKP : 1960 Requested By: Virgil Powell Order Number: [id number] Reading MD: Evaristo Up Measurements Intervals [place] Rate: 55 P: 19 IN: 121 QRS: -2 QRSD: 90 T: 35 QT: 452 QTc: 441 Interpretive Statements SINUS BRADYCARDIA VOLTAGE CRITERIA FOR LVH MODERATE T-WAVE ABNORMALITY, CONSIDER ANTEROLATERAL ISCHEMIA Electronically Signed On 03-04-2017 15:33:23 EDT by Evaristo Up
--- NOTE | 2017-03-04 17:56 | Internal Med Progress Note ---
Date of Encounter: 03/04/17 Time of Encounter: 17:42 - Assessment and plan (1) Abdominal pain Current Visit: Yes Status: Acute Assessment and plan: Leigh Lloyd is a 56 y/o female with PMH HTN, diabetes, history DVT and COPD who presented to [facility] on 03/03/2017 with complaints of abdominal pain. She was placed in observation status for further workup and treatment. 1. Abdominal pain: For 1 week prior to presentation. ABD CT nonacute however was done without IV contrast. The appendix was not seen but there was no inflammatory changes in RLQ suggest acute appendicitis. Abdominal pain improved on today's exam. Etiology unknown. Possible gastroenteritis as she does report one episode of loose, watery stool. Continue clear liquid diets. Stool studies. Consider repeating abdominal CT with contrast if symptoms persist 2. DVT: per hx. on Coumadin at home. INR 3.9. Hold until INR less than 3. 3. Syncope: per patient report prior to presentation. Now resolved. Echo with EF 60%, mild diastolic dysfunction. Carotid Dopplers normal. Check Ortho BPs 4. Diabetes: per hx. Blood sugars controlled. SSI. Monitor blood sugar and titrate PRN 5. HTN: per hx. BP controlled. Cont home BP medications. Monitor BP and titrate PRN 6. DVT prophylaxis: Supratherapeutic INR Qualifiers: Abdominal location: lower abdomen, unspecified Qualified Code(s): R10.30 - Lower abdominal pain, unspecified (2) COPD (chronic obstructive pulmonary disease) Current Visit: No Status: Chronic Qualifiers: COPD type: unspecified COPD Qualified Code(s): J44.9 - Chronic obstructive pulmonary disease, unspecified (3) DM (diabetes mellitus), type 2 Current Visit: No Status: Chronic Qualifiers: Diabetes mellitus complication status: with skin complications Diabetes mellitus complication detail: with other skin complication Diabetes mellitus group home insulin use: without intermediate card tender use Qualified Code(s): E11.628 - Type 2 diabetes mellitus with other skin complications (4) History of DVT (deep vein thrombosis) Current Visit: No Status: Chronic (5) HTN (hypertension) Current Visit: No Status: Chronic Qualifiers: Qualified Code(s): I10 - Essential (primary) hypertension - Subjective Interval history: Seen and examined at bedside, patient is new to me. Information obtained from chart review and patient report. Patient says she overall feels better. Still with some abdominal tenderness but significantly improved. She reports one episode of loose, watery stool prior to presentation. Tolerating clear liquid diet. - Constitutional Vitals: Temp Pulse Resp BP Pulse Ox 98.4 F 55 16 126/77 96 03/04/17 15:18 03/04/17 15:18 03/04/17 15:18 03/04/17 15:18 03/04/17 15:18 General appearance: Present: cooperative, pleasant, no acute distress, obese, answers questions appropriately - Head Head exam: Present: atraumatic, normocephalic - Eye Eye exam: Present: PERRL, conjuntiva pink, sclera anicteric Pupils: Present: PERRL - Neck Neck exam general surgery: Present: supple, trachea midline. Absent: lymphadenopathy - Respiratory Respiratory exam: Present: CTAB. Absent: accessory muscle use, rales, rhonchi, wheezes - Cardiovascular Cardiovascular exam: Present: RRR, +S1, +S2. Absent: diastolic murmur, gallop, rubs, systolic murmur - GI/Abdominal GI/Abdominal exam: Present: normal bowel sounds, soft, no peritoneal signs. Absent: distended, tenderness - Extremities Exam Extremities exam: Present: warm, radial pulses palpable and symmetrical. Absent : calf tenderness, cyanotic, pedal edema - Neurological Exam Neurological exam: Present: CN II-XII intact, oriented X3, no focal deficits. Absent: pronater drift, facial droop, speech deficit - Skin Skin exam: Present: dry, intact Internal Medicine: Result - Labs CBC & Chem 7: 03/04/17 01:00 03/04/17 01:00 Labs: Short CBC 03/04/17 Range/Units 01:00 WBC 9.7 (4.3-11.1) K/mcL Hgb 13.9 (11.5-15.4) g/dL Hct 40.2 (35.3-44.9) % Plt Count 295 (140-400) K/mcL Neutrophils # 5.3 (1.6-8.9) K/mcL BMP 03/04/17 01:00 Sodium 139 Potassium 3.3 L Chloride 101 Carbon Dioxide 28 BUN 6 L Creatinine 0.86 Glucose 137 H Calcium 8.8 Cardiac Enzymes 03/04/17 03/04/17 Range/Units 01:00 06:49 Troponin I 0.00 0.01 (0-0.03) ng/mL - ABG Interpretation ABG results: PT/INR, D-dimer PT 43.8 Seconds (9.4-12.1) H* 03/04/17 01:00 - Impressions Impressions Echocardiogram 03/04/17 22:50 Impressions: LVEF 60-65%. Normal LV chamber size and function. Mild concentric left ventricular hypertrophy. Mild left ventricular diastolic dysfunction. Normal right ventricular structure and function. Mild aortic regurgitation. Mild pulmonary hypertension. Left Ventricular Wall Motion: Rest Echo Findings All wall segments showed normal motion. Findings: Study Quality * Technically adequate exam. ECG Findings * Normal sinus rhythm. Left Ventricle * LVEF 60-65%. * Normal LV chamber size and function. * Mild concentric left ventricular hypertrophy. * Mild left ventricular diastolic dysfunction. Right Ventricle * Normal right ventricular structure and function. Left Atrium * Mildly dilated left atrium. Right Atrium * Normal right atrial size. Aortic Valve * Trileaflet aortic valve. * Mild aortic regurgitation. * No aortic stenosis. Mitral Valve * Normal mitral valve structure and function. * No mitral stenosis. * Trace mitral regurgitation. Tricuspid Valve * Normal tricuspid valve structure and function. * Trace tricuspid regurgitation. * Mild pulmonary hypertension. Pulmonic Valve * Normal pulmonic valve structure and function. * Trace pulmonic regurgitation. Aorta * Normally sized aortic root. Pericardium * The pericardium appears normal. IVC * Normal IVC dimensions and inspiratory collapse. Pulmonary Artery * Normal visualized portions of the main pulmonary artery. Consult Discharge Plan - Plan Referrals: Hunter Tapia, PAC [Primary Care Provider] -
[2017-03-04] MEDS ORDERED: Insulin LISPRO 300 UNITS/3 ML VIAL SQ SCH (21:00)
[2017-03-05 01:32] LABS: Bilirubin,Urine Negative (Negative); Blood,Urine Large (Negative); Clarity,Urine Turbid (Clear); Color,Urine Yellow (Yellow); Glucose,Urine (UA) Normal (Normal); Ketones,Urine Negative (Negative); Leukocyte Esterase,Urine Large (Negative); Nitrite,Urine Negative (Negative); PH,Urine 6.5 pH Units (5.0-8.0); Protein,Urine 100 mg/dL (Neg-Trace); Specific Gravity,Urine 1.006 (1.010-1.025); Urobilinogen,Urine Normal (Normal)
[2017-03-05 01:44] LABS: Bacteria,Urine Many per hpf (None-Few); Squamous Epithelial Cell,Urine Many per lpf (None-Few); WBC,Urine TNTC per hpf (0-3)
[2017-03-05 01:46] LABS: RBC,Urine 0-3 per hpf (0-3)
[2017-03-05 05:01] LABS: Hemoglobin 13.1 g/dL (11.5-15.4); Mean Corpuscular HGB Conc 33.6 g/dL (31.6-35.5); Mean Corpuscular Hemoglobin 32.4 pg (28.0-33.3); Mean Corpuscular Volume 96.5 fL (83.0-100.0); Mean Platelet Volume 10.2 fL (9.4-12.4); Platelet Count 281 K/mcL (140-400); Red Blood Count 4.04 M/mcL (3.82-4.97)
[2017-03-05 05:15] LABS: Alanine Aminotransferase 24 Units/L (0-55); Albumin 3.1 g/dL (3.5-5.0); Albumin/Globulin Ratio 1.3 (1.1-2.2); Alkaline Phosphatase 67 Units/L (38-126); Aspartate Amino Transferase 39 Units/L (5-34); BUN/Creatinine Ratio 4 (6-26); Bilirubin,Total 0.5 mg/dL (0.2-1.2); Calcium 8.8 mg/dL (8.6-10.8); Carbon Dioxide 30 mEq/L (19-29); Chloride 105 mEq/L (98-109); Globulin 2.4 g/dL (2.4-3.5); Glucose 112 mg/dL (70-99); Osmolality,Calculated 291 (280-300); Potassium 3.8 mEq/L (3.5-4.5); Sodium 142 mEq/L (136-145); Total Protein 5.5 g/dL (6.0-8.3); eGFR For African Americans > 60 (> 60); eGFR For Non-African Americans > 60 (> 60)
[2017-03-05 05:16] LABS: Blood Urea Nitrogen 3 mg/dL (7-20)
[2017-03-05 05:22] LABS: INR 3.7; Prothrombin Time 40.7 Seconds (9.4-12.1)
[2017-03-05] MEDS: *HR* Heparin 5,000 UNIT/ML VIAL SQ SCH (06:20)
[2017-03-05] MEDS: Pantoprazole 40 MG VIAL IVP SCH (06:20)
[2017-03-05] MEDS: *HR* Morphine 2 MG/ML SYRINGE IVP PRN (09:22)
[2017-03-05] MEDS: Insulin LISPRO 300 UNITS/3 ML VIAL SQ SCH ×2 (09:22→14:25)
[2017-03-05] MEDS: diazePAM 10 MG TABLET PO PRN (09:23)
[2017-03-05 11:26] VITALS: BP 144/96
[2017-03-05 11:59] LABS: Amphetamine Screen,Urine Negative ng/mL (Cutoff=1000); Barbiturate Screen,Urine Negative ng/mL (Cutoff=200); Benzodiazepines Screen,Urine Positive ng/mL (Cutoff=200); Cannabinoid Screen,Urine Negative ng/mL (Cutoff = 50); Cocaine Screen,Urine Negative ng/mL (Cutoff= 300); Opiate Screen,Urine Positive ng/mL (Cutoff=300); Phencyclidine Screen,Urine Negative ng/mL (Cutoff=25)
--- NOTE | 2017-03-05 13:51 | Discharge Summary ---
Date of Encounter: 03/05/17 Time of Encounter: 14:49 - Discharge Diagnosis (1) IBS (irritable bowel syndrome) Priority: Primary Status: Acute Comments: Leigh Lloyd is a 56 y/o female with PMH HTN, diabetes, history DVT and COPD who presented to [facility] on 03/03/2017 with complaints of abdominal pain. She was placed in observation status for further workup and treatment. He was found to have a UTI. Her abdominal pain resolved without intervention. She was discharged home on 03/05/2017 in stable condition with outpatient follow-up. 1. Irritable bowel syndrome: per hx. Presented 1 week of abdominal pain. ABD CT nonacute. Possibly exacerbated by gastroenteritis as she reported one episode of loose, watery stool prior to presentation. Now tolerating regular PO diet without abdominal pain. Suspect multifactorial with irritable bowel syndrome, possible gastroenteritis, fibromyalgia and a UTI. Pain resolved at time of discharge. No loose stool recurrence. Recommend follow-up with PCP. 2. UTI: UA indicative of UTI. Asymptomatic, denies dysuria. No frequency. Previous urine cultures with Citrobacter, Escherichia coli sensitive to Cipro. Start Cipro for a total seven-day course. Will follow culture and change ATB accordingly. 3. DVT: per hx. on Coumadin at home. Patient reports go INR 2.5-3 INR 4.2 on arrival. Coumadin was held while she was hospitalized. [place] [facility] (verified 03/05/2017); lab is open 7 days a week and patient is able to have INR checked on 03/06/2017. Continue holding Coumadin until INR less than 3. INR 3.7 on day of discharge. 4. Syncope: per patient report prior to presentation. Now resolved. Echo with EF 60%, mild diastolic dysfunction. Carotid Dopplers normal. No evidence of prostatic hypotension. Suspect secondary to poor by mouth intake prior to presentation. 5. Diabetes: per hx. Blood sugars controlled. Continue home diabetes medication regimen 6. HTN: per hx. BP controlled. Cont home BP medications. Qualifiers: Irritable bowel syndrome type: with constipation Qualified Code(s): K58.1 - Irritable bowel syndrome with constipation (2) COPD (chronic obstructive pulmonary disease) Priority: Primary Status: Chronic Qualifiers: COPD type: unspecified COPD Qualified Code(s): J44.9 - Chronic obstructive pulmonary disease, unspecified (3) DM (diabetes mellitus), type 2 Priority: Primary Status: Chronic Qualifiers: Diabetes mellitus complication status: with skin complications Diabetes mellitus complication detail: with other skin complication Diabetes mellitus prison insulin use: without oysterman use Qualified Code(s): E11.628 - Type 2 diabetes mellitus with other skin complications (4) History of DVT (deep vein thrombosis) Priority: Primary Status: Chronic (5) HTN (hypertension) Priority: Primary Status: Chronic Qualifiers: Hypertension type: essential hypertension Qualified Code(s): I10 - Essential (primary) hypertension - Discharge Medications Prescriptions: Ciprofloxacin [Cipro] 250 mg PO BID #14 tablet Home Medications: Atenolol [Tenormin] 50 mg PO DAILY 12/26/14 [History] Atorvastatin Calcium [Lipitor] 20 mg PO HS 12/26/14 [History] Famotidine [Pepcid] 40 mg PO BID 12/26/14 [History] Lisinopril [Zestril] 10 mg PO DAILY 12/26/14 [History] Melatonin 10 mg PO HS 12/26/14 [History] diazePAM [Valium] 10 mg PO TID 10/15/15 [History] Methocarbamol [Robaxin] 500 mg PO Q8HR 12/04/15 [History] Albuterol Neb [Proventil Neb] 2.5 mg IH Q6H PRN 03/03/17 [History] Albuterol Sulfate [Proair Hfa] 2 puff IH Q4H PRN 03/03/17 [History] Diphenoxylate/Atropine [Lomotil 2.5 mg/0.025 mg] 1 each PO BID PRN 03/03/17 [ History] Trazodone HCl 300 mg PO HS 03/03/17 [History] Ciprofloxacin [Cipro] 250 mg PO BID #14 tablet 03/05/17 [Rx] Allergies/Adverse Reactions: 3 Allergy/AdvReac Type Severity Reaction Status Date / Time doxycycline Allergy Rash Verified 01/11/17 14:07 Erythromycin Base Allergy See Verified 01/11/17 14:07 Comments Iodinated Contrast- Oral and Allergy Unresponsiv Verified 01/11/17 14:07 IV Dye e [Iodinated Contrast Media - IV Dye] ketorolac [From Toradol] Allergy Rash Verified 01/11/17 14:07 NSAIDS (Non-Steroidal Allergy Gastrointestinal Verified 01/11/17 14:07 Anti-Inflamma Upset Sulfa (Sulfonamide Allergy Rash Verified 01/11/17 14:07 Antibiotics) tramadol Allergy Rash Verified 01/11/17 14:07 Procedures/tests Complete & Pending: Procedures Performed prior 72 hours Category Date Time Status EV carotid duplex imaging BI Routine Y 03/04/17 22:50 Completed EV echocardiogram Routine Y 03/04/17 22:50 Completed Date of admission: 03/03/17 21:17 Primary care physician: Hunter Tapia Consults: 03/04/17 00:[address] [employer]er Installer [CONS] Routine Reason for SW Consult: patient reports she lives in trailer with no running water, uses [employer] outside Discharging clinician: Luz Marina David Anticipated date of discharge: 03/05/17 - Patient Status Disposition: Home, Self-Care Condition: Good Functional capacity at discharge: uses cane/walker Overall status at discharge: patient is back to baseline - Discharge Instructions Instructions: Urinary Tract Infection in Women (DC), Elevated INR (DC), Syncope (DC) Follow Up With: Hunter Tapia, PAC [Primary Care Provider] - Additional Instructions: Make sure you go to [facility] and have INR drawn 03/06/2017. Resume Coumadin if INR is less than 3. If INR is greater than 3 continue to hold Coumadin and have INR checked on 03/07/2017. Her INR is elevated a continue at higher risk for bleeding. Seek medical attention if you notice any abnormal, excessive bleeding It appears she may have a UTI. You will be discharged on antibiotic. Urine culture is pending and he will be called if a different antibiotic is needed - Diet and Activity Activity: resume usual activities as tolerated Diet: diabetic diet, low fat, low cholesterol Interval History: Exam at bedside. Patient says she feels significantly improved she is hesitant to go home due to her home living situation and financial concerns from a medical standpoint she is ready for discharge. Spoke to patient at length regarding the need to have INR drawn tomorrow. Patient states her INR goal was between 2.5 and 3. Patient says she has standing order at [facility] for INR draw. The manager community relations spoke to [facility] and patient does have standing order is able to go tomorrow and get INR drawn. Patient says she has plenty of Coumadin left at home. She is advised to have her blood drawn tomorrow for INR recheck. He should also reports that she has fibromyalgia and she thinks that could have been contributing to her abdominal pain along with her irritable bowel syndrome in the hospital bed. Advised patient that is concerning for UTI and that she will be discharged on antibiotic. Patient strongly encouraged to follow-up with PCP within one week. Hospital course: See assessment and plan for hospital course - Time Spent with Patient Total time spent providing and/or coordinating discharge services: Less than 30 minutes - Constitutional Vitals: Temp Pulse Resp BP Pulse Ox 98.2 F 62 16 144/96 92 03/05/17 11:24 03/05/17 07:48 03/05/17 07:48 03/05/17 11:24 03/05/17 07:48 General appearance: Present: cooperative, pleasant, no acute distress, obese, answers questions appropriately - Head Head exam: Present: atraumatic, normocephalic - Eye Eye exam: Present: PERRL, conjuntiva pink, sclera anicteric Pupils: Present: PERRL - Neck Neck exam general surgery: Present: supple, trachea midline. Absent: lymphadenopathy - Respiratory Respiratory exam: Present: CTAB. Absent: accessory muscle use, rales, rhonchi, wheezes - Cardiovascular Cardiovascular exam: Present: RRR, +S1, +S2. Absent: diastolic murmur, gallop, rubs, systolic murmur - GI/Abdominal GI/Abdominal exam: Present: normal bowel sounds, soft, no peritoneal signs. Absent: distended, tenderness - Extremities Exam Extremities exam: Present: warm, radial pulses palpable and symmetrical. Absent : calf tenderness, cyanotic, pedal edema - Neurological Exam Neurological exam: Present: CN II-XII intact, oriented X3, no focal deficits. Absent: pronater drift, facial droop, speech deficit - Skin Skin exam: Present: dry, intact
== END 2017-03-05 18:30 | disposition home or self-care (01) ==
LOC: 3BNU 17:58 → EMEROO 17:58 → 3BNU 22:06
PROVIDERS: ADMIT Internal Medicine; ATTEND Registered Nurse